=== PATIENT | male | born 1975 | race Native Hawaiian/Other Pacific Islander ===

== ENCOUNTER 2017-04-30 11:22 | Outpatient (CLI) | payer OTHER | END 2017-04-30 11:26 | disposition short-term general hospital (02) | LOC: AMB 11:22 | DX: S42.392B Other fracture of shaft of left humerus, initial encounter for open fracture (principal); W31.89XA Contact with other specified machinery, initial encounter; Y92.69 Other specified industrial and construction area as the place of occurrence of the external cause | CPT/HCPCS: A0427 ==